=== PATIENT | female | born 1965 | race Hispanic/Latino ===

== ENCOUNTER → 2018-12-27 | Outpatient (CLI) | payer SELFPAY | END | disposition home or self-care (01) | LOC: RAH 12:55 | PROVIDERS: ATTEND Obstetrics & Gynecology | DX: Z12.31 Encounter for screening mammogram for malignant neoplasm of breast (principal) | CPT/HCPCS: 77067 ==

== ENCOUNTER 2022-08-07 20:58 | Emergency (ER) | payer OTHER, SELFPAY ==
[~2022-08-07] VITALS: Ht 162.6 cm; Wt 64.4 kg
[2022-08-07 22:36] LABS: BASOPHILS % (AUTO) 0.4 % (0.0-5.0); HEMATOCRIT 38.7 % (36-48); LYMPHOCYTES % (AUTO) 7.9 % (21.0-51.0); MEAN CORPUSCULAR HEMOGLOBIN 30.5 pg (27.0-33.0); MEAN CORPUSCULAR HGB CONC 33.3 g/dL (32.0-36.0); MEAN CORPUSCULAR VOLUME 91.5 fL (79-99); MONOCYTES % (AUTO) 7.5 % (3.0-13.0); NEUTROPHILS % (AUTO) 83.9 % (40.0-77.0); PLATELET COUNT (AUTO) 227 K/uL (130-400); RED BLOOD CELL COUNT(AUTO) 4.23 MIL/uL (4.00-5.50); RED CELL DISTRIBUTION WIDTH 12.1 % (11.0-15.5)
[2022-08-07 22:47] LABS: APPEARANCE,URINE CLEAR (CLEAR); BILIRUBIN,URINE NEGATIVE (NEGATIVE); COLOR,URINE YELLOW (YELLOW); GLUCOSE, URINE (UA) NEGATIVE (NEGATIVE); KETONES,URINE 150 mg/dL (NEGATIVE); LEUKOCYTE ESTERASE ,URINE NEGATIVE Leu/uL (NEGATIVE); NITRATE,URINE NEGATIVE (NEGATIVE); OCCULT BLOOD,URINE LARGE (NEGATIVE); PH,URINE 6.5 (5.0-8.0); PROTEIN,URINE 20 mg/dL (NEGATIVE); UROBILINOGEN,URINE 0.2 mg/dL (0.2-1.0)
[2022-08-07] MEDS ORDERED: MORPHINE 4 MG SYG IVP ONE (23:00)
[2022-08-07] MEDS ORDERED: 0.9%NACL 1000ML 1,000 ML IV ONE (23:00)
[2022-08-07] MEDS ORDERED: ONDANSETRON 4MG INJ IVP ONE (23:00)
[2022-08-07 23:02] LABS: MUCUS,URINE RARE LPF (None Seen); RBC,URINE 51-100 /HPF (0-1); SQUAMOUS EPITHELIAL CELL,UR RARE /HPF (0-2); WBC,URINE 0-1 /HPF (0-1)
[2022-08-07 23:15] LABS: CARBON DIOXIDE 26 mmol/L (21-32); CHLORIDE 100 mmol/L (101-111); CREATININE 0.8 mg/dL (0.5-1.5); GLOMERULAR FILTR. RATE CALC 86 mL/min (>90); GLUCOSE,RANDOM 118 mg/dL (70-105); POTASSIUM 3.7 mmol/L (3.5-5.1); SODIUM SERUM 137 mmol/L (136-145); UREA NITROGEN, BLOOD 13 mg/dL (7-18)
[2022-08-07 23:19] LABS: ALANINE AMINOTRANSFERASE 18 U/L (12-78); ALBUMIN 4.3 g/dL (3.5-5.0); ASPARTATE AMINOTRANSFERASE 19 U/L (10-37); TOTAL PROTEIN, SERUM 7.9 g/dL (6.0-8.3)
[2022-08-07 23:20] LABS: LIPASE < 50 U/L (114-286)
[2022-08-07] MEDS ORDERED: IOHEXOL 350 MG/ML 100ML INFUS..BTL IV ONE (23:26)
[2022-08-08] MEDS ORDERED: NIRM1TAB PO (00:19)
[2022-08-08 00:32] VITALS: BP 123/78
== END 2022-08-08 00:31 | disposition home or self-care (01) ==
LOC: EDH 20:58
DX: U07.1 COVID-19 (principal)
CPT/HCPCS: 99285; 74177; 96374; 87635; 96361; 96375; 80053; 83690; 85025; 87880; 87804 ×2; 83605; 81001; 36415; C9803; J7030; J2405; J2270; Q9967

== ENCOUNTER → 2024-08-11 | Outpatient (CLI) | payer OTHER ==
[~2024-08-11] MED LIST: NIRM1TAB PO
--- NOTE | 2024-08-11 16:55 | HMCIMG ---
THYROID ULTRASOUND History: Nodule left side, history thyroid biopsy benign results, 35 years ago Comparison: None Findings: Right thyroid lobe midpole shows a hypoechoic nodule measuring 8 mm, lower pole shows a hypoechoic nodule measuring 3 mm. Mid pole nodule of the left side, hypoechoic, 6 mm. Complex nodule with calcifications, left thyroid lower pole, 1.5 cm. In addition, possible parathyroid adenomas or nodules seen surrounding the left inferior thyroid lobe measuring 11 and 11 mm, outside of the thyroid itself. This could also represent foci of ectopic thyroid tissue. IMPRESSION: Nodules in possible parathyroid nodules as noted above.
== END | disposition home or self-care (01) ==
LOC: RAH 15:43
PROVIDERS: ATTEND Internal Medicine
DX: E04.2 Nontoxic multinodular goiter (principal); E07.89 Other specified disorders of thyroid
CPT/HCPCS: 76536